=== PATIENT | female | born 1960 | race Caucasian/White ===

== ENCOUNTER 2023-08-26 14:29 | Emergency (ER) | payer MEDICARE, MEDICAID, SELFPAY ==
[2023-08-26 14:35] VITALS: BP 128/79; PULSE 84; RESP 16; TEMP 36.4; O2SAT 96
--- NOTE | 2023-08-26 14:51 | CT_ITS ---
WS: [id number] CT ABDOMEN PELVIS TECHNIQUE: Contrast-enhanced CT of the abdomen and pelvis with coronal and sagittal reformatted image s. CLINICAL INFORMATION: abd pain COMPARISON: CT 2013 DLP: 375.[address] scans at [facility] use at least one of these dose optimization techniques: automated e xposure control; mA and/or kV adjustment per patient size (includes targeted exams where dose is matc hed to clinical indication); or iterative reconstruction. FINDINGS: Prior cholecystectomy and hysterectomy. Grade 1 anterolisthesis L5 on S1 with RIGHT unilateral spondy lolysis. Lung bases are well aerated. Diffuse fatty infiltration of the liver. Cholecystectomy clips. Normal portal vein and splenic vein. Normal spleen. Adrenal glands are normal. Normal pancreatic par enchymal enhancement. Celiac and SMA are patent. Normal renal parenchymal enhancement. No hydronephrosis. Adrenal glands are normal. Prominent RIGHT e xtrarenal pelvis with slight RIGHT ureterectasis may be due to recently passed calculus. No calculi v isualized in the bladder. Pelvic phleboliths. No para-aortic lymphadenopathy. No pelvic or inguinal lymphadenopathy. Normal sigmoid colon. No evidence of small or large bowel obstruction. Moderate dense transverse colo n and splenic flexure, constipation. Appendix is not visualized and may have been previously resected . IMPRESSION: 1. Dense transverse colon and splenic flexure constipation. 2. Prior cholecystectomy. 3. No obstructing renal or ureteral calculi. No hydronephrosis in either kidney. 4. Prominent RIGHT extrarenal pelvis with slight RIGHT ureterectasis may be due to recently passed calculus. No calculi visualized in the bladder. 5. Small bladder cystocele. 6. Small esophageal hiatal hernia. 7. Grade 1 anterolisthesis L5 on S1 with unilateral spondylolysis. 8. Appendix is not identified and may have been previously resected. 9. Prior hysterectomy.
--- NOTE | 2023-08-26 14:52 | ED_ITS ---
HPI - Abdominal Pain 2 General: Chief Complaint: Abdominal Pain Stated Complaint: abd pain Time Seen by Provider: 08/26/23 14:35 Source: patient Mode of arrival: ambulatory Limitations: no limitations History of Present Illness: 63-year-old female states she been havin g right lower quadrant abdominal pain throughout the day. States pain sharp in nature worse with movement of her right leg she rates the pain a 4 out of 10 its improved with rest she has had no vomiting denies any diarrhea denies any fevers Associated Symptoms: Denies chills, diarrhea, fever(s), nausea and vomiting Review of Systems 2 Const: Denies: fever(s), chills, body aches or change in appetite ENMT: Denies: throat pain or dental pain Card: Denies: chest pain Resp: Denies: dyspnea GI: Reports: abdominal pain; Denies: nausea, vomiting or diarrhea Musc: Denies: neck pain or back pain Skin/Breast: Denies: rash Neuro: Denies: headache(s) Physical Exam 2 Const: COMMON NORMALS: no acute distress, patient oriented x3 and healthy appearing HENMT: COMMON NORMALS: normocephalic and atraumatic HEAD & SCALP: n ormocephalic and atraumatic Eye: COMMON NORMALS: conjunctivae normal CONJUNCTIVA: Yes conjunctivae normal Neck/C-Spine: COMMON NORMALS: full ROM and supple Chest: COMMONS NORMALS: normal inspection of the chest Resp: COMMON NORMALS: normal respiratory effort, No retractions, No use of accessory muscles and clear to auscultation bilaterally AUSCULTATION: clear to auscultation bilaterally Cardio: COMMON NORMALS: regular rate, regular rhythm and No murmurs present (Cardio) RATE: regular rate RHYTHM: regular rhythm GI: COMMON NORMALS: Normal to inspection, nondistended, normoactive bowel sounds present, Soft to palpation and no masses PALPATION: Yes Soft to palpation and Yes Tenderness to palpation present (GI) Details: RLQ Extremity: COMMON NORMALS: normal to inspection and full ROM Neuro: COMMON NORMALS: patient oriented x3, moves all extremities and no focal motor deficits Psych: COMMON NORMALS: mental status grossly normal, Normal thought process present and cooperative THOUGHT PROCESS: Normal thought process present Skin: COMMON NORMALS: no rashes or lesions noted and no wounds GENERAL SKIN EXAM: no rashes or lesions noted Course 2 Vital Signs: Vital signs: Vital Signs Temperature 97.5 F L 08/26/23 14:35 Pulse Rate 67 08/26/23 16:20 Respiratory Rate 16 08/26/23 14:35 Blood Pressure 130/81 08/26/23 16:20 Pulse Oximetry 97 08/26/23 16:20 Oxygen Delivery Me thod Room Air 08/26/23 16:20 MDM - Abdominal Pain Medical Decision Making Patient presents here with abdominal pain CT shows constipation no other findings noted blood work here is all normal we will place her on Naprosyn and we will get her follow-up with surgery she is return if worsening. Medical Records I reviewed the patient's medical records. Lab Data I reviewed the patient's lab results. 08/26/23 14:53 08/26/23 14:53 Labs/Radiology: Laboratory Results WBC 6.48 10^3/uL (3.29-11.43) 08/26/23 14:53 RBC 4.34 10^6/uL (3.85-5.65) 08/26/23 14:53 Hgb 13.00 g/dL (11.27-16.99) 08/26/23 14:53 Hct 38.4 % (36-47) 08/26/23 14:53 MCV 88.5 fl (85-98) 08/26/23 14:53 MCH 30.0 pg (27-33) 08/26/23 14:53 MCHC 33.9 g/dL (30-55) 08/26/23 14:53 RDW 12.1 % (12.1-15.1) 08/26/23 14:53 Plt Count 306 10^3/cmm (157-399) 08/26/23 14:53 MPV 8.7 fL (7.4-10.4) 08/26/23 14:53 Neut % (Auto) 62.3 % 08/26/23 14:53 Lymph % (Auto) 28.4 % 08/26/23 14:53 [place] % (Auto) 7.1 % 08/26/23 14:53 Eos % (Auto) 1.1 % 08/26/23 14:53 Baso % (Auto) 0.8 % 08/26/23 14:53 Neut # (Auto) 4.04 10^3/uL (1.8-7.7) 08/26/23 14:53 Lymph # (Auto) 1.8 10^3/uL (0.8-4.8) 08/26/23 14:53 [place] # (Auto) 0.5 10^3/uL (0.2-0.9) 08/26/23 14:53 Eos # (Auto) 0.1 10^3/uL (0.0-0.8) 08/26/23 14:53 Baso # (Auto) 0.1 10^3/uL (0.0-0.1) 08/26/23 14:53 Nucleated RBC % (auto) 0 % 08/26/23 14:53 Nucleated RBCs # 0.0 /100WBC 08/26/23 14:53 Sodium 138 mmol/L (136-145) 08/26/23 14:53 Potassium 3.9 mmol/L (3.5-5.1) 08/26/23 14:53 Chloride 99 mmol/L (98-107) 08/26/23 14:53 Carbon Dioxide 25 mmol/L (22-29) 08/26/23 14:53 Anion Gap 17.9 (5-19) 08/26/23 14:53 BUN 12 mg/dL (8-23) 08/26/23 14:53 Creatinine 0.6 mg/dL (0.5-0.9) 08/26/23 14:53 GFR Calculation 101.0 mL/min (90-130) 08/26/23 14:53 Glucose 101 mg/dL (65-115) 08/26/23 14:53 Calculated Osmolality 286 mOsm/kg (285-295) 08/26/23 14:53 Calcium 10.0 mg/dL (8.5-10.5) 08/26/23 14:53 Total Bilirubin 0.4 mg/dL (0.15-1.2) 08/26/23 14:53 AST 20 U/L (0-32) 08/26/23 14:53 ALT 16 U/L (0-33) 08/26/23 14:53 Alkaline Phosphatase 89 U/L (35-105) 08/26/23 14:53 Total Protein 7.5 g/dL (6.6-8.7) 08/26/23 14:53 Albumin 4.4 g/dL (3.5-5.2) 08/26/23 14:53 Globulin 3.1 g/dL (1.3-4.6) 08/26/23 14:53 Lipase 42 U/L (13-60) 08/26/23 14:53 Urine Color Yellow (Yellow) 08/26/23 14:57 Urine Appearance Clear (CLEAR) 08/26/23 14:57 Urine pH 5 (5-7) 08/26/23 14:57 Ur Specific [place] 1.010 (1.005-1.030) 08/26/23 14:57 Urine Protein Neg (Negative) 08/26/23 14:57 Urine Glucose (UA) Norm (Normal) 08/26/23 14:57 Urine Ketones Negative (Negative) 08/26/23 14:57 Urine Blood Neg (Negative) 08/26/23 14:57 Urine Nitrate Negative (Negative) 08/26/23 14:57 Urine Bilirubin Neg (Negative) 08/26/23 14:57 Urine Urobilinogen Norm mg/dL (Negative) 08/26/23 14:57 Ur Leukocyte Esterase Negative (Negative) 08/26/23 14:57 All radiology interpretation(s) finalized by discharge EKG Data EKG 1: I personally reviewed and interpreted this EKG as follows: EKG interpretation date: 08/26/23 EKG interpretation time: 14:43 Interpretation: nsr hr [address] or t wave abnormalities qrs 89 qtc 410 Discharge Plan Discharge Patient Disposition: Home Clinical Impression: Abdominal pain Qualifiers: Abdominal location: right lower quadrant Qualified Code(s): R10.31 - Right lower quadrant pain Condition: Stable Prescriptions: New naproxen [Naprosyn] 500 mg tablet 500 mg PO BID PRN (Reason: pain) Qty: 20 0RF No Action alprazolam 0.5 mg tablet 0.5 mg PO QPM fluoxetine 10 mg capsule 10 mg PO QPM polyethylene glycol 3350 17 gram/dose powder 17 g PO DAILY Women's Multivitamin 18 mg iron-400 mcg-500 mg Tablet 1 tab PO DAILY Discharge Orders: Discharge ED (Routine); Ordered 08/26/23 Ordered By: Azucena Cardenas Referrals: Ernie Cortes DO [Physician] - 1-3 days Discharge Diet: Advance as tolerated Discharge Activity: Resume usual activity Patient Instructions: Abdominal Pain (ED) Coding Level of Care Code ED Supervisor Plastics for Susan Schneider
[2023-08-26 15:01] LABS: Basophils # 0.1 10^3/uL (0.0-0.1); Basophils % 0.8 %; Eosinophils # 0.1 10^3/uL (0.0-0.8); Eosinophils % 1.1 %; Hematocrit 38.4 % (36-47); Lymphocytes # 1.8 10^3/uL (0.8-4.8); Lymphocytes % 28.4 %; Mean Corpuscular HGB Conc 33.9 g/dL (30-55); Mean Corpuscular Volume 88.5 fl (85-98); Mean Platelet Volume 8.7 fL (7.4-10.4); Monocytes # 0.5 10^3/uL (0.2-0.9); Monocytes % 7.1 %; Neutrophils # 4.04 10^3/uL (1.8-7.7); Neutrophils % 62.3 %; Nucleated Red Blood Cells % 0 %; Platelet Count 306 10^3/cmm (157-399); Red Blood Count 4.34 10^6/uL (3.85-5.65); Red Cell Distribution Width 12.1 % (12.1-15.1); White Blood Count 6.48 10^3/uL (3.29-11.43)
[2023-08-26 15:02] LABS: Add Urine Microscopic? NO; Charge for UA Resulting for Rev
[2023-08-26 15:06] LABS: Bilirubin Urine Neg (Negative); Blood Urine Neg (Negative); Glucose Urine UA Norm (Normal); Ketones Urine Negative (Negative); Leukocyte Esterase Urine Negative (Negative); Nitrate Urine Negative (Negative); Protein Urine Neg (Negative); Urine Appearance Clear (CLEAR); Urine Color Yellow (Yellow); Urobilinogen Urine Norm (Negative); pH Urine 5 (5-7)
[2023-08-26] MEDS: sodium chloride 0.9% 1,000 ML 999 ML IV (15:17)
[2023-08-26 15:31] LABS: Alanine Aminotransferase 16 U/L (0-33); Albumin Level 4.4 g/dL (3.5-5.2); Alkaline Phosphatase 89 U/L (35-105); Anion Gap 17.9 (5-19); Aspartate Amino Transferase 20 U/L (0-32); Blood Urea Nitrogen 12 mg/dL (8-23); Carbon Dioxide 25 mmol/L (22-29); Chloride 99 mmol/L (98-107); Globulin 3.1 g/dL (1.3-4.6); Glucose 101 mg/dL (65-115); Lipase 42 U/L (13-60); Osmolality Calculated 286 mOsm/kg (285-295); Potassium 3.9 mmol/L (3.5-5.1); Sodium 138 mmol/L (136-145); Total Bilirubin 0.4 mg/dL (0.15-1.2); Total Protein 7.5 g/dL (6.6-8.7)
[2023-08-26] MEDS: iohexol 350 mg/mL 500 mL Btl (per mL) IV (15:44)
[2023-08-26 16:20] VITALS: BP 130/81; PULSE 67; O2SAT 97
--- NOTE | 2023-08-26 16:44 | DCPLANNER ---
Message was sent to Dr. Cortes office (general surgery) on 08/26/23 at [id number]. [facility] to contact patient.
[2023-08-26 16:58] VITALS: BP 130/81; PULSE 67; O2SAT 97
== END 2023-08-26 16:59 | disposition home or self-care (01) ==
PROVIDERS: Emergency Provider Emergency Medicine
DX: R10.31 Right lower quadrant pain (principal)
CPT/HCPCS: 74177; 80053; 81003; 83690; 85025; 99285; J7030; Q9967